=== PATIENT | female | born 1960 | race Caucasian/White ===

== ENCOUNTER → 2020-06-01 11:13 | Outpatient (CLI) | payer OTHER, SELFPAY ==
--- NOTE | ~2020-06-01 | MR_ITS ---
EXAMINATION: MR knee RT wo con DATE: 06/01/2020 11:53 INDICATION: Right knee pain. TECHNIQUE: Magnetic resonance imaging (MRI) of the right knee was performed without intravenous contr ast. Sequences included axial PD-weighted FS FSE, coronal PD-weighted FSE and PD-weighted FS FSE, sag ittal PD-weighted FSE, and sagittal T2-weighted FS FSE. COMPARISON: None. FINDINGS: Medial compartment: There is a complex tear of posterior root of medial meniscus. There is shallow partial-thickness cart ilage loss of tibial condyle, worst at the central articular surface. There is shallow partial-thickn ess cartilage loss of femoral condyle, worst at the central articular surface. There are tiny margina l osteophytes. Lateral compartment: Lateral meniscus is normal. There is cartilage surface irregularity of tibial condyle and femoral con dyle. Patellofemoral compartment: There is full-thickness cartilage loss of patellar median ridge and deep partial thickness cartilage loss of patellar medial and lateral facets with mild subchondral edema-like marrow signal intensity. There is cartilage surface irregularity of trochlea. Osteophytes are noted. Ligaments and tendons: Anterior and posterior cruciate ligaments are normal. There are changes of prior sprains of medial co llateral ligament and fibular collateral ligament characterized by thickening and increased signal in tensity. There is mild patellar tendinopathy. Fluid: There is a small knee joint effusion. There is a large Gray's cyst. IMPRESSION: 1. Severe chondrosis of patellofemoral compartment and mild chondrosis of medial and lateral compartm ents. 2. Tear of medial meniscus. 3. Small knee joint effusion. 4. Large Gray's cyst. Reviewed, dictated and finalized at location A. IMPRESSION: 1. Severe chondrosis of patellofemoral compartment and mild chondrosis of media l and lateral compartments. 2. Tear of medial meniscus. 3. Small knee joint effusion. 4. Large Gray's cyst.
== END ==
PROVIDERS: Visit Provider Orthopaedic Surgery
DX: M71.21 Synovial cyst of popliteal space [Baker], right knee (principal); M25.461 Effusion, right knee; S83.241A Other tear of medial meniscus, current injury, right knee, initial encounter; X58.XXXA Exposure to other specified factors, initial encounter
CPT/HCPCS: 73721

== ENCOUNTER 2023-11-24 11:27 | Outpatient (CLI) | payer OTHER, SELFPAY ==
--- NOTE | 2023-11-24 11:33 | ECG_ITS ---
Measurements Intervals [place] Rate: 68 P: 24 MS: 145 QRS: 9 QRSD: 95 T: 22 QT: 391 QTc: 418 Interpretive Statements SINUS RHYTHM BORDERLINE T WAVE ABNORMALITY- ANTERIOR LEADS BASELINE ARTIFACT- I, II, III, AVR, AVL, AVF BORDERLINE ECG NO PREVIOUS ECG AVAILABLE FOR COMPARISON Electronically Signed On 11-24-2023 12:20:26 FURNACE REPAIRER by Markos Bowman D.O.
== END 2023-11-24 11:28 | disposition home or self-care (01) ==
LOC: ANHSURGERY 11:30
PROVIDERS: Visit Provider Orthopaedic Surgery
DX: I10 Essential (primary) hypertension (principal); Z01.818 Encounter for other preprocedural examination
CPT/HCPCS: 93005

== ENCOUNTER → 2023-11-27 02:04 | Day surgery (SDC) | payer OTHER, SELFPAY ==
[2023-11-20 10:59] VITALS: BMI 30.9
--- NOTE | 2023-11-20 11:07 | PC.NURSE ---
Report to the Outpatient Waiting Room, entrance under the green pavilion located off [facility], at time 6:00 on date 11/27/23. Planned Procedure Time: 7:30. Time changes happen often and if your time is changed the preop area will call you the afternoon before. - You and your visitor will be asked to self-screen and do not enter if you have any COVID symptoms. - A mask is optional within the hospital at this time. Patients may have clear liquids (water, carbonated beverages, clear teas, apple juice) until 3 hours prior to surgery with a maximum of 20 ounces. - No food from midnight until time of surgery - Infants may have breast milk until 4 hours before surgery, formula 6 hours prior to surgery. - Children will be allowed to drink immediately following surgery. If applicable, please bring a bottle or sippy cup to assist with drinking. Juice, water, soda, and popsicles are readily available. For infants on formula, please bring formula the day of surgery. Pacifiers are allowed. Take the following medications with a SIP of water the morning of surgery: BUPROPION, DESVENLAFAXINE, NITROFURANTOIN, TOPIRAMATE DO NOT STOP ANY OF YOUR OTHER PRESCRIPTION MEDICATIONS PRIOR TO SURGERY ?EXCEPT THE FOLLOWING Medications to discontinue per physician: MELOXICAM Date to take last dose: 11/19/23 Please no make-up, nail citizen of [place], hairspray, perfume, deodorant, or body powder the day of surgery. No jewelry (including any body piercings) or valuables the day of surgery, leave them at home. Please take a shower or bath the night before, or the morning of, surgery with an antibacterial soap. Wear comfortable, loose fitting clothing. - Jewelry must be removed prior to entering the operating room. Rings and piercings that are not removed may be cut off. - The hospital will not accept responsibility for valuables. - Please leave all valuables, including medications, at home the day of surgery. If you are going home after surgery, a licensed forklift driver must drive you home. - NO public transportation without another adult if you receive anesthesia. - We recommend that an adult stay with you for 24 hours following discharge. - We also recommend that you do not drive, make important decision, drink alcoholic beverages, or take any drugs that were not prescribed by your health care provider for at least 24 hours after your discharge time. Follow any additional instructions given to you from your surgeon. If you or anyone in your household have experienced Covid symptoms in the past week, please notify your surgeon or the nurse liaison at the phone number below for possible testing. Telephone instructions given to JOAQUÍN THOMPSON and asked if any additional questions and then verbalized understanding. Patient advised to call surgeon office or pre surgery nurse liaison [phone] if any additional questions.
[2023-11-27] VITALS (10 sets, daily range): BP systolic 113–142; BP diastolic 46–80; PULSE 73–91; RESP 12–20; TEMP 36.4–36.6; O2SAT 95–100
--- NOTE | ~2023-11-27 | XR_ITS ---
EXAMINATION: XR surgery orthopedic DATE: 11/27/2023 09:11 INDICATION: Left foot arthrodesis TECHNIQUE: 3 fluoroscopic images of the left forefoot were obtained during procedure performed by Dr. Patrick. Radiologist was not present for the imaging or procedure. The amount of fluoroscopy time us ed during this procedure was 0.2 minutes. Total DAP was 0.886 cGycm^2. COMPARISON: 11/15/2019 FINDINGS: Interval resection of the heads of the second-fifth metatarsals. The second-fifth rays have been fixe d with an axially directed. These pins beginning distally at the lacie of the distal phalanges and ex tending across the proximal and middle phalanges into the bases of the associated metatarsals. Alignm ent appears near-anatomic. Moderate osteoarthritis at the first metatarsophalangeal joint. Mild osteo arthritis at several of the profiled tarsometatarsal and interphalangeal joints. Expected postoperati ve gas at the operative beds. IMPRESSION: 1. Fluoroscopy utilized during orthopedic procedure at the left forefoot with osteotomies of the head s of the second-fifth metatarsals. See procedure note for further detail. Reviewed, dictated and finalized at location A. OF HOUSEKEEPING IMPRESSION: 1. Fluoroscopy utilized during orthopedic procedure at the left forefoot with o steotomies of the heads of the second-fifth metatarsals. See procedure note for further detail.
[2023-11-27] MEDS: ACETAMINOPHEN 500 MG TABLET 1000 MG PO (06:24)
[2023-11-27] MEDS: LACTATED RINGERS 1,000 ML 30 ML IV CONT (06:30)
[2023-11-27] MEDS: KETOROLAC 15 MG/ML VIAL (*BKC) IV PUSH (06:37)
--- NOTE | 2023-11-27 06:57 | WPDANESEPPF ---
Anes - Initial Pre Proc Eval Procedure: Operation Date: 11/27/23 07:30 Proposed Procedures p Reconstruction Left Toes Two Through Five with Metatarsal Head Excision, Proximal Interphalangeal Arthrodesis - Romie Patrick MD Date/Time: 11/27/23 06:57 Surgeon: Romie Patrick MD Pre Op Diagnosis: left foot deformity, crossover toes Patient Data Age: 63 Gender: F Height: 1.63 m Weight: 81.7 kg Last Vital Signs Temp 36.4 C L 11/27/23 06:00 Pulse 73 11/27/23 06:00 Resp 20 11/27/23 06:00 BP 139/60 11/27/23 06:00 Pulse Ox 100 11/27/23 06:00 O2 Del Method Room Air 11/27/23 06:00 Allergies Allergy/AdvReac Type Severity Reaction Status Date / Time Penicillins Allergy Unknown Rash Verified 11/20/23 10:53 sulfanilamide Allergy Unknown Hives Verified 11/20/23 10:53 Home Medications Medication Instructions Recorded Confirmed Type bupropion HCl 150 mg tablet,12 hr 150 mg PO BID 10/01/19 11/27/23 History sustained-release desvenlafaxine succinate 50 mg 50 mg PO DAILY 10/01/19 11/27/23 History tablet,extended release 24 hr (Pristiq) loratadine 5 mg-pseudoephedrine ER 1 tablet PO Q12H 10/01/19 11/27/23 History 120 mg tablet,extended release,12hr (Claritin-D 12 Hour) ezetimibe 10 mg-simvastatin 20 mg 1 tablet PO HS 11/20/23 11/27/23 History tablet meloxicam 7.5 mg tablet 7.5 mg PO BID 11/20/23 11/27/23 History metoprolol succinate 50 mg 50 mg PO HS 11/20/23 11/27/23 History tablet,extended release 24 hr nitrofurantoin macrocrystal 100 mg 100 mg PO Q12H 11/20/23 11/27/23 History capsule omeprazole 40 mg capsule,delayed 40 mg PO DAILY 11/20/23 11/27/23 History release topiramate 50 mg tablet 50 mg PO DAILY 11/20/23 11/27/23 History Patient hx anesthesia problems: none Family hx anesthesia problems: none Results Review: All pre-operative results and documents have been reviewed as part of the pre-operative evaluation. FORMERLY [facility], [facility] Past Medical History Medical History (Updated 11/27/23 @ 07:00 by Yony Cox MD) Cystocoele Dislocation of toe of left foot Gastric reflux Hammer toe of left foot High blood pressure History of depression Rectocele Family History Family History Other Headache Hypertension Social History Social History Smoking status: Never smoker Alcohol intake: current Drinks per week: 1 Substance use: never Substance use type: does not use Living arrangements: with family Spiritual care concerns: No Anes - Eval Final PreProcedure Day of Procedure 11/27/23 06:57 Patient weight: obese Heart: regular rate and rhythm Lungs: clear to auscultation Airway: Mallampati scale class III Neurological: alert and oriented Last oral intake: >/= 8 hours ASA classification: III Emergent: no Anesthetic plan: proceed Anesthesia type and monitoring: general LMA and standard monitoring Results Review: All pre-operative results and documents have been reviewed as part of the pre-operative evaluation. Informed Consent: The patient's anesthetic plan and its attendant risks and benefits were discussed with the patient/family/POA. Questions were solicited and answers provided to the satisfaction of the patient/family/POA.
--- NOTE | 2023-11-27 07:14 | WPDHPUPDATE1 ---
History and Physical Update Update Date/Time: 11/27/23 07:14 History and Physical has been reviewed, including an updated exam of the patient. There are NO changes in the patient's condition. Risks, benefits, and alternatives have been discussed and questions answered. Patient agrees to proceed with procedure.
[2023-11-27] MEDS: ceFAZolin 2 GM/D5W 50 ML 2 GM/50 ML BAG IVPB (07:24)
[2023-11-27] MEDS: BUPivacaine HCL 0.5% 10 ML AMP 20 ML INFILTRATE (08:30)
--- NOTE | 2023-11-27 09:39 | P.OP_ITS ---
Procedure Note - Detailed Date of Procedure 11/27/23 Pre-op Diagnosis left foot deformity, crossover toes Post-op Diagnosis Same Procedure Performed Left foot lesser toe correction with metatarsal head resection toes 2, 3, 4, 5; proximal interphalangeal arthrodesis toe does 2, 3, 4, 5. 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 Status post previous surgery with recurrence of deformity involvement of metatarsal phalangeal proximal interphalangeal joints. Crossover toe deformity as well as dislocation of the 2nd 3rd toes with deformity of the metatarsal. 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 Pain shoe wear and activity. Presents for operative treatment Description of Procedure Patient identified in the preoperative holding.? Informed consent given.? Operative extremity marked.? Patient received intravenous antibiotics.? Patient brought to the operating room where underwent general anesthetic by anesthesia team.? Positioned supine on operating room table.? Time-out performed confirming the patient, site of the surgery and the plan. Left foot prepped and draped usual sterile surgical fashion using ChloraPrep skin solution.? Foot exsanguinated and calf tourniquet inflated to 225 mmHg.? 0.5% Marcaine plain local anesthetic used for each toe.? The metatarsal head resection was performed through 2 longitudinal incisions.? 1 was placed between the 2nd and 3rd metatarsals and the other from 4th and 5th metatarsal along the dorsum of the foot.? These were made with 15 blade knife.? Hemostasis controlled electrocautery. dissection carried the 2nd metatarsal phalangeal joint and the metatarsal head exposed.? Sagittal saw used to resect the metatarsal head.? This was smoothed with a rongeur.? Dissection then carried to the 3rd metatarsal head and again exposure made had resected with a sagittal saw and smoothed with a rongeur.? These were then thoroughly irrigated.? From the lateral incision the 4th metatarsal head was exposed and resected with a sagittal saw and smoothed with a rongeur.? The 5th metatarsal head was then exposed resected with sagittal saw and smoothed with a rongeur.? Dorsal longitudinal incisions were made over the proximal interphalangeal joint of the 2nd, 3rd, 4th, 5th toe.? Joint exposed by releasing the medial and lateral collateral ligaments.? Distal end of the proximal phalanx resected with a bone cutter.? The articular surface of the middle phalanx resected with a rongeur.? Thorough irrigation was then done.? Fixation was achieved with K-wires placed in intramedullary fashion verified with image intensification. 2nd toe a 0.045 in supplemental pin was utilized for rotational control.? Wounds thoroughly irrigated and the capsules were closed with 3-0 Monocryl interrupted suture.? Skin repaired with 4-0 nylon running and 3-0 nylon interrupted suture. Sterile dressing applied.? The patient was then woken from anesthesia, extubated and taken to the recovery room in stable condition.? All sponge, needle, instrument counts were correct at the end of the case. Implants 0.062 in K-wire x2, 0.045 in K-wire x3. Estimated Blood Loss 5 Tourniquet Time Total Tourniquet Time: 95 Drains No Packing No Pathology None sent Complications None Condition Stable Disposition PACU [facility] Billing Surgery - Charge Forward: Surgery Billing ([id number], [id number] x 4)
[2023-11-27] MEDS: oxyCODONE HCL (*CRX) 5 MG TAB IR PO (10:46)
== END | disposition home or self-care (01) ==
PROVIDERS: Visit Provider Orthopaedic Surgery
PROC: (CPT 28750; principal; 2023-11-27 07:30)
DX: M20.5X2 Other deformities of toe(s) (acquired), left foot (principal); I10 Essential (primary) hypertension; K21.9 Gastro-esophageal reflux disease without esophagitis; F32.A Depression, unspecified; Z98.890 Other specified postprocedural states
CPT/HCPCS: 28114; 28285 ×4; 93005; 99199; A9270; C1713; J0690; J1100; J1885; J2250; J2405; J2704; J3010; J7120